=== PATIENT | male | born 1980 | race Two or more races ===

== ENCOUNTER 2018-11-18 01:09 | Emergency (ER) | payer MEDICAID, OTHER ==
[~2018-11-18] VITALS: Ht 188 cm; Wt 114.5 kg
[~2018-11-18 01:09] MED LIST: ACET1TAB12 PO; DOXY-243 PO
[2018-11-18 01:17] VITALS: BP 150/92
[2018-11-18] MEDS ORDERED: PHEN100C4 PO (02:10)
== END 2018-11-18 02:40 | disposition home or self-care (01) ==
LOC: ER 01:10
DX: S06.0X0A Concussion without loss of consciousness, initial encounter (principal); S00.81XA Abrasion of other part of head, initial encounter; I10 Essential (primary) hypertension; F41.9 Anxiety disorder, unspecified; F20.9 Schizophrenia, unspecified; Z88.8 Allergy status to other drugs, medicaments and biological substances; V89.9XXA Person injured in unspecified vehicle accident, initial encounter; Y93.89 Activity, other specified; Y92.89 Other specified places as the place of occurrence of the external cause; Y99.8 Other external cause status
CPT/HCPCS: 99283

== ENCOUNTER 2019-01-02 03:46 | Emergency (ER) | payer MEDICAID ==
[~2019-01-02] VITALS: Ht 185.4 cm; Wt 113.6 kg
[~2019-01-02 03:46] MED LIST changes: +PHEN100C4 PO
--- NOTE | 2019-01-02 04:05 | NUR ---
SZ PADS PLACED ON RAILIS/ SUCTION SET UP WITH O2 ON STAND BY FOR SZ PRECATIONS
[2019-01-02] MEDS ORDERED: normal saline 1000ML IV soln IVB ONE ×2 (04:15)
--- NOTE | 2019-01-02 04:15 | NUR ---
pt to ct with executive director of nursing
--- NOTE | 2019-01-02 04:25 | NUR ---
pt back from ct
[2019-01-02 04:28] LABS: BASOPHILS % (AUTO) 0.6 % (0-1); EOSINOPHILS # (AUTO) 0.1 X10'3 (0-0.9); EOSINOPHILS % (AUTO) 1.4 % (0-6); HEMATOCRIT 44.4 % (42.0-52.0); HEMOGLOBIN 15.3 g/dl (14.0-17.9); LYMPHOCYTES # (AUTO) 1.7 X10'3 (1.1-4.8); LYMPHOCYTES % (AUTO) 22.1 % (21-51); MEAN CORPUSCULAR HEMOGLOBIN 30.9 PG (27.0-31.0); MEAN CORPUSCULAR HGB CONC 34.4 g/dL (33.0-36.5); MEAN CORPUSCULAR VOLUME 89.9 FL (78-98); MEAN PLATELET VOLUME 10.3 FL (7.4-10.4); MONOCYTES # (AUTO) 0.7 X10'3 (0-0.9); MONOCYTES % (AUTO) 9.3 % (2-12); NEUTROPHILS # (AUTO) 5.1 X10'3 (1.8-7.7); NEUTROPHILS % (AUTO) 66.6 % (42-75); PLATELET COUNT 173 X10'3 (140-440); RED BLOOD COUNT 4.94 X10'6 (4.70-6.10); RED CELL DISTRIBUTION WIDTH 13.8 % (11.5-14.5); WHITE BLOOD COUNT 7.7 X10'3 (4.5-11.0)
[2019-01-02 04:40] LABS: ALANINE AMINOTRANSFERASE 145 U/L (12-78); ALBUMIN 3.5 G/DL (3.4-5.0); ALBUMIN/GLOBULIN RATIO 0.8 (1.1-1.5); ALKALINE PHOSPHATASE 129 IU/L (46-116); ANION GAP 7 (8-16); ASPARTATE AMINO TRANSFERASE 69 U/L (10-37); BILIRUBIN,TOTAL 0.5 MG/DL (0.1-1.0); BLOOD UREA NITROGEN 11 MG/DL (7-18); BUN/CREATININE RATIO 11.2 (5.4-32.0); CHLORIDE 106 MMOL/L (99-107); CREATININE 0.98 MG/DL (0.60-1.10); GLUCOSE 112 MG/DL (70-104); POTASSIUM 3.6 MMOL/L (3.5-5.1); SODIUM 141 MMOL/L (135-145); TOTAL CARBON DIOXIDE 27.6 MMOL/L (24-32); TOTAL PROTEIN 7.8 G/DL (6.4-8.2); eGFR 85 ML/MIN
[2019-01-02 04:42] LABS: ETHANOL < 0.010 GM/DL (0.0-0.010)
[2019-01-02 05:13] LABS: URINE AMPHETAMINE SCREEN POSITIVE (Neg); URINE BARBITUATE SCREEN NEGATIVE (Neg); URINE BENZODIAZEPINES SCREEN NEGATIVE (Neg); URINE CANNABINOID SCREEN NEGATIVE (Neg); URINE COCAINE SCREEN NEGATIVE (Neg); URINE METHADONE SCREEN NEGATIVE (Neg); URINE OPIATE SCREEN POSITIVE (Neg); URINE PHENCYCLIDINE SCREEN NEGATIVE (Neg)
--- NOTE | 2019-01-02 05:18 | NUR ---
PT ASLEEP IN BED . AWOKE PT TO ASSESS GAIT ORDERED
--- NOTE | 2019-01-02 05:25 | NUR ---
PT WAS ABLE TO AMBULATE THE FRONT HALLWAY FROM ROOM 2 TO ROOM 6 WITH STEADY GAIT . REPORTED TO DR SLOAN
[2019-01-02 05:43] VITALS: BP 156/85
== END 2019-01-02 05:35 | disposition home or self-care (01) ==
LOC: ER 03:47
DX: R56.9 Unspecified convulsions (principal); T43.625A Adverse effect of amphetamines, initial encounter; R42 Dizziness and giddiness; R05 Cough; R41.0 Disorientation, unspecified; I10 Essential (primary) hypertension; E11.9 Type 2 diabetes mellitus without complications; F41.9 Anxiety disorder, unspecified; F31.9 Bipolar disorder, unspecified; F20.9 Schizophrenia, unspecified; F17.200 Nicotine dependence, unspecified, uncomplicated; F11.90 Opioid use, unspecified, uncomplicated; Z98.890 Other specified postprocedural states; Z88.8 Allergy status to other drugs, medicaments and biological substances; Z79.899 Other long term (current) drug therapy; Y92.89 Other specified places as the place of occurrence of the external cause
CPT/HCPCS: 36415; 70450; 80053; 80305; 80320; 85025; 93005; 96360; 99284; J7030; J7040

== ENCOUNTER 2019-02-03 05:59 | Emergency (ER) | payer MEDICAID, OTHER ==
[~2019-02-03] VITALS: Ht 188 cm; Wt 109.1 kg
[2019-02-03 06:14] VITALS: BP 157/93
== END 2019-02-03 08:52 | disposition left against medical advice (07) ==
LOC: ER 06:00
DX: R56.9 Unspecified convulsions (principal); Z76.0 Encounter for issue of repeat prescription; Z53.21 Procedure and treatment not carried out due to patient leaving prior to being seen by health care provider

== ENCOUNTER 2019-09-07 23:51 | Emergency (ER) | payer MEDICAID, OTHER ==
[~2019-09-07] VITALS: Ht 185.4 cm; Wt 120.4 kg
[2019-09-08 00:35] LABS: BASOPHILS # (AUTO) 0.1 X10'3 (0-0.2); EOSINOPHILS # (AUTO) 0.1 X10'3 (0-0.9); LYMPHOCYTES # (AUTO) 2.3 X10'3 (1.1-4.8); MONOCYTES # (AUTO) 0.6 X10'3 (0-0.9)
[2019-09-08 00:37] LABS: ALANINE AMINOTRANSFERASE 120 U/L (12-78); ALBUMIN 3.5 G/DL (3.4-5.0); ALBUMIN/GLOBULIN RATIO 0.9 (1.1-1.5); ALKALINE PHOSPHATASE 119 IU/L (46-116); ANION GAP 10 (8-16); ASPARTATE AMINO TRANSFERASE 57 U/L (10-37); BILIRUBIN,TOTAL 0.4 MG/DL (0.1-1.0); BLOOD UREA NITROGEN 13 MG/DL (7-18); BUN/CREATININE RATIO 11.9 (5.4-32.0); CALCIUM 8.4 MG/DL (8.5-10.1); CHLORIDE 107 MMOL/L (99-107); CREATININE 1.09 MG/DL (0.60-1.10); GLUCOSE 132 MG/DL (70-104); POTASSIUM 3.5 MMOL/L (3.5-5.1); SODIUM 142 MMOL/L (135-145); TOTAL CARBON DIOXIDE 25.4 MMOL/L (24-32); TOTAL PROTEIN 7.4 G/DL (6.4-8.2); eGFR 75 ML/MIN
[2019-09-08 00:38] LABS: BASOPHILS % (AUTO) 0.9 % (0-1); EOSINOPHILS % (AUTO) 1.7 % (0-6); HEMATOCRIT 44.8 % (42.0-52.0); HEMOGLOBIN 15.6 g/dl (14.0-17.9); LYMPHOCYTES % (AUTO) 26.6 % (21-51); MEAN CORPUSCULAR HEMOGLOBIN 31.5 PG (27.0-31.0); MEAN CORPUSCULAR HGB CONC 34.8 g/dL (33.0-36.5); MEAN CORPUSCULAR VOLUME 90.5 FL (78-98); MEAN PLATELET VOLUME 11.8 FL (7.4-10.4); MONOCYTES % (AUTO) 6.8 % (2-12); NEUTROPHILS # (AUTO) 5.7 X10'3 (1.8-7.7); PLATELET COUNT 143 X10'3 (140-440); RED BLOOD COUNT 4.95 X10'6 (4.70-6.10); RED CELL DISTRIBUTION WIDTH 13.8 % (11.5-14.5); WHITE BLOOD COUNT 8.8 X10'3 (4.5-11.0)
[2019-09-08 01:23] LABS: D-DIMER 0.45 MG/L FEU (0-0.50)
[2019-09-08 02:28] VITALS: BP 152/100
== END 2019-09-08 02:30 | disposition home or self-care (01) ==
LOC: ER 23:51
DX: R06.02 Shortness of breath (principal); R04.2 Hemoptysis; I10 Essential (primary) hypertension; E11.9 Type 2 diabetes mellitus without complications; F41.9 Anxiety disorder, unspecified; F31.9 Bipolar disorder, unspecified; F20.9 Schizophrenia, unspecified; F15.90 Other stimulant use, unspecified, uncomplicated; F11.90 Opioid use, unspecified, uncomplicated; Z86.69 Personal history of other diseases of the nervous system and sense organs; Z87.11 Personal history of peptic ulcer disease; Z98.890 Other specified postprocedural states; Z72.89 Other problems related to lifestyle; Z88.8 Allergy status to other drugs, medicaments and biological substances; Z79.2 Long term (current) use of antibiotics; Z79.899 Other long term (current) drug therapy
CPT/HCPCS: 36415; 71045; 80053; 84484; 85025; 85379; 93005; 99285

== ENCOUNTER 2020-06-13 03:39 | Emergency (ER) | payer MEDICAID ==
[~2020-06-13] VITALS: Ht 185.4 cm; Wt 145.4 kg
[2020-06-13 04:35] VITALS: BP 165/95
== END 2020-06-13 04:36 | disposition home or self-care (01) ==
LOC: ER 03:39
DX: M25.561 Pain in right knee (principal); R53.1 Weakness; I10 Essential (primary) hypertension; E11.9 Type 2 diabetes mellitus without complications; F41.9 Anxiety disorder, unspecified; F31.9 Bipolar disorder, unspecified; F20.9 Schizophrenia, unspecified; F17.210 Nicotine dependence, cigarettes, uncomplicated; F15.90 Other stimulant use, unspecified, uncomplicated; F11.90 Opioid use, unspecified, uncomplicated; Z86.69 Personal history of other diseases of the nervous system and sense organs; Z98.890 Other specified postprocedural states; Z88.8 Allergy status to other drugs, medicaments and biological substances; Z79.899 Other long term (current) drug therapy
CPT/HCPCS: 99281

== ENCOUNTER 2020-08-30 01:45 | Emergency (ER) | payer MEDICAID ==
[~2020-08-30] VITALS: Ht 182.9 cm; Wt 136.0 kg
[2020-08-30 01:54] VITALS: BP 198/122
[2020-08-30] MEDS ORDERED: PENI500T2 PO (03:05)
[2020-08-30] MEDS ORDERED: LIDOcaine Viscous 15ml cup MM ONE (03:10)
[2020-08-30] MEDS ORDERED: penicillin V potassium 500mg tablet PO ONE (03:10)
== END 2020-08-30 03:22 | disposition home or self-care (01) ==
LOC: ER 01:46
DX: K08.89 Other specified disorders of teeth and supporting structures (principal); K05.10 Chronic gingivitis, plaque induced; K02.9 Dental caries, unspecified; R11.10 Vomiting, unspecified; G40.909 Epilepsy, unspecified, not intractable, without status epilepticus; I10 Essential (primary) hypertension; F11.90 Opioid use, unspecified, uncomplicated; F15.90 Other stimulant use, unspecified, uncomplicated; E11.9 Type 2 diabetes mellitus without complications; Z87.11 Personal history of peptic ulcer disease; Z72.89 Other problems related to lifestyle; Z88.8 Allergy status to other drugs, medicaments and biological substances; Z79.2 Long term (current) use of antibiotics; Z79.899 Other long term (current) drug therapy
CPT/HCPCS: 99283

== ENCOUNTER 2021-09-02 00:41 | Emergency (ER) | payer MEDICAID ==
[~2021-09-02] VITALS: Ht 182.9 cm; Wt 125.0 kg
[2021-09-02 00:58] VITALS: BP 164/106
[2021-09-02] MEDS ORDERED: normal saline 1000ml 1,000 ML IV ONE (01:20)
--- NOTE | 2021-09-02 01:30 | NUR ---
PT REFUSED ALL LABS AND IV FOR FLUIDS. STATES HE FEELS BETTER AND WANTS TO LEAVE.
== END 2021-09-02 02:03 | disposition home or self-care (01) ==
LOC: ER 00:42
DX: R55 Syncope and collapse (principal); I10 Essential (primary) hypertension; E11.9 Type 2 diabetes mellitus without complications; F31.9 Bipolar disorder, unspecified; F11.90 Opioid use, unspecified, uncomplicated; F15.20 Other stimulant dependence, uncomplicated; Z88.8 Allergy status to other drugs, medicaments and biological substances
CPT/HCPCS: 93005; 99284

== ENCOUNTER 2021-11-23 13:04 | Emergency (ER) | payer MEDICAID ==
[~2021-11-23] VITALS: Ht 182.9 cm; Wt 113.6 kg
[2021-11-23 13:22] VITALS: BP 168/108
--- NOTE | 2021-11-23 14:52 | NUR ---
PT INFORMED ME THAT HE HE TOOK "[employer] BENYDRYL" BEFORE COMING TO THE ED.
[2021-11-23] MEDS ORDERED: PRED20TA PO (15:58)
== END 2021-11-23 16:32 | disposition home or self-care (01) ==
LOC: ER 13:05
DX: L23.7 Allergic contact dermatitis due to plants, except food (principal); I10 Essential (primary) hypertension; E11.9 Type 2 diabetes mellitus without complications; F31.9 Bipolar disorder, unspecified; F20.9 Schizophrenia, unspecified; F15.10 Other stimulant abuse, uncomplicated; Z88.8 Allergy status to other drugs, medicaments and biological substances
CPT/HCPCS: 99283

== ENCOUNTER 2022-02-02 18:35 | Emergency (ER) | payer MEDICAID ==
[~2022-02-02] VITALS: Ht 177.8 cm; Wt 88.6 kg
[2022-02-02 19:00] VITALS: BP 159/98
--- NOTE | 2022-02-02 21:00 | NUR ---
Patient girlfriend at bedside.
--- NOTE | 2022-02-03 03:44 | NUR ---
Patient awake, requested urinal.
== END 2022-02-03 05:54 | disposition home or self-care (01) ==
LOC: ER 18:35
DX: F19.10 Other psychoactive substance abuse, uncomplicated (principal); I10 Essential (primary) hypertension; E11.9 Type 2 diabetes mellitus without complications; F41.9 Anxiety disorder, unspecified; F31.9 Bipolar disorder, unspecified; F20.9 Schizophrenia, unspecified; F15.90 Other stimulant use, unspecified, uncomplicated; F11.90 Opioid use, unspecified, uncomplicated; Z86.69 Personal history of other diseases of the nervous system and sense organs; Z87.11 Personal history of peptic ulcer disease; Z98.890 Other specified postprocedural states; Z72.89 Other problems related to lifestyle; Z88.8 Allergy status to other drugs, medicaments and biological substances; Z79.2 Long term (current) use of antibiotics; Z79.899 Other long term (current) drug therapy
CPT/HCPCS: 99285

== ENCOUNTER 2022-09-23 07:04 | Emergency (ER) | payer MEDICAID ==
[~2022-09-23] VITALS: Ht 182.9 cm; Wt 122.7 kg
[2022-09-23 07:12] VITALS: BP 161/101; PULSE 76; RESP 18; TEMP 98.1; O2SAT 100
[2022-09-23 07:28] LABS: BASOPHILS % (AUTO) 0.7 % (0-1); EOSINOPHILS # (AUTO) 0.2 X10'3 (0-0.9); EOSINOPHILS % (AUTO) 2.6 % (0-6); HEMATOCRIT 43.5 % (42.0-52.0); HEMOGLOBIN 14.8 g/dl (14.0-17.9); LYMPHOCYTES # (AUTO) 2.6 X10'3 (1.1-4.8); LYMPHOCYTES % (AUTO) 37.7 % (21-51); MEAN CORPUSCULAR HEMOGLOBIN 30.5 PG (27.0-31.0); MEAN CORPUSCULAR HGB CONC 34.1 g/dL (33.0-36.5); MEAN CORPUSCULAR VOLUME 89.4 FL (78-98); MEAN PLATELET VOLUME 10.3 FL (7.4-10.4); MONOCYTES # (AUTO) 0.6 X10'3 (0-0.9); MONOCYTES % (AUTO) 8.6 % (2-12); NEUTROPHILS # (AUTO) 3.5 X10'3 (1.8-7.7); NEUTROPHILS % (AUTO) 50.4 % (42-75); PLATELET COUNT 162 X10'3 (140-440); RED BLOOD COUNT 4.87 X10'6 (4.70-6.10); RED CELL DISTRIBUTION WIDTH 13.4 % (11.5-14.5)
[2022-09-23 07:48] LABS: ALANINE AMINOTRANSFERASE 72 U/L (12-78); ALBUMIN 3.6 G/DL (3.4-5.0); ALBUMIN/GLOBULIN RATIO 0.8 (1.1-1.5); ALKALINE PHOSPHATASE 166 IU/L (46-116); ANION GAP 8 (8-16); ASPARTATE AMINO TRANSFERASE 68 U/L (10-37); BILIRUBIN,TOTAL 0.4 MG/DL (0.1-1.0); BLOOD UREA NITROGEN 11 MG/DL (7-18); BUN/CREATININE RATIO 13.3 (10.0-20.0); CALCIUM 9.2 MG/DL (8.5-10.1); CHLORIDE 103 MMOL/L (99-107); CREATININE 0.83 MG/DL (0.60-1.10); GLUCOSE 100 MG/DL (70-104); POTASSIUM 3.4 MMOL/L (3.5-5.1); SODIUM 141 MMOL/L (135-145); TOTAL CARBON DIOXIDE 29.9 MMOL/L (24-32); TOTAL PROTEIN 7.9 G/DL (6.4-8.2); eGFR > 90 ML/MIN
== END 2022-09-23 11:30 | disposition left against medical advice (07) ==
LOC: ER 07:05
DX: R07.9 Chest pain, unspecified (principal); Z53.21 Procedure and treatment not carried out due to patient leaving prior to being seen by health care provider
CPT/HCPCS: 36415; 80053; 83880; 84484; 85025; 93005; 99281

== ENCOUNTER 2023-03-23 10:29 | Emergency (ER) | payer MEDICAID ==
[~2023-03-23] VITALS: Ht 177.8 cm; Wt 82.6 kg
[2023-03-23 10:30] VITALS: BP 157/97; PULSE 106; RESP 18; TEMP 97.7; O2SAT 97
== END 2023-03-23 11:06 | disposition left against medical advice (07) ==
LOC: ER 10:30
DX: M54.50 Low back pain, unspecified (principal); Z53.21 Procedure and treatment not carried out due to patient leaving prior to being seen by health care provider
CPT/HCPCS: 99281

== ENCOUNTER 2023-08-02 23:08 | Emergency (ER) | payer MEDICAID ==
[~2023-08-02] VITALS: Ht 177.8 cm; Wt 82.0 kg
[2023-08-02 23:18] VITALS: BP 144/71; PULSE 98; RESP 14; TEMP 97.9; O2SAT 97
== END 2023-08-03 00:12 | disposition left against medical advice (07) ==
LOC: ER 23:09
DX: R55 Syncope and collapse (principal); Z53.21 Procedure and treatment not carried out due to patient leaving prior to being seen by health care provider
CPT/HCPCS: 82948; 93005

== ENCOUNTER 2023-09-27 19:48 | Emergency (ER) | payer MEDICAID ==
[~2023-09-27] VITALS: Ht 175.3 cm; Wt 87.4 kg
[2023-09-27 20:09] VITALS: BP 184/107; PULSE 89; RESP 16; TEMP 98.6; O2SAT 99
== END 2023-09-27 21:12 | disposition home or self-care (01) ==
LOC: ER 19:49
DX: Z00.00 Encounter for general adult medical examination without abnormal findings (principal); I10 Essential (primary) hypertension; E11.9 Type 2 diabetes mellitus without complications; F41.9 Anxiety disorder, unspecified; F31.9 Bipolar disorder, unspecified; F15.90 Other stimulant use, unspecified, uncomplicated; Z88.8 Allergy status to other drugs, medicaments and biological substances; Z79.2 Long term (current) use of antibiotics; Z79.1 Long term (current) use of non-steroidal anti-inflammatories (NSAID); Z79.899 Other long term (current) drug therapy
CPT/HCPCS: 99281

== ENCOUNTER 2023-10-08 19:44 | Emergency (ER) | payer MEDICAID ==
[~2023-10-08] VITALS: Ht 180.3 cm; Wt 81.8 kg
[2023-10-08] MEDS: buprenorphine/naloxone 8MG-2MG SUBlingual film SL SCH (21:48)
[2023-10-08] MEDS: normal saline 1000ML IV soln IVB ONE (21:49)
[2023-10-08 21:51] VITALS: BP 150/83; PULSE 118; RESP 16; TEMP 98.6; O2SAT 96
[2023-10-08 22:02] LABS: BASOPHILS # (AUTO) 0.1 X10'3 (0-0.2); BASOPHILS % (AUTO) 0.5 % (0-1); EOSINOPHILS # (AUTO) 0.1 X10'3 (0-0.9); EOSINOPHILS % (AUTO) 0.7 % (0-6); HEMATOCRIT 44.2 % (42.0-52.0); HEMOGLOBIN 14.9 g/dl (14.0-17.9); LYMPHOCYTES # (AUTO) 1.3 X10'3 (1.1-4.8); LYMPHOCYTES % (AUTO) 11.8 % (21-51); MEAN CORPUSCULAR HEMOGLOBIN 30.3 PG (27.0-31.0); MEAN CORPUSCULAR HGB CONC 33.7 g/dL (33.0-36.5); MEAN PLATELET VOLUME 10.9 FL (7.4-10.4); MONOCYTES # (AUTO) 0.7 X10'3 (0-0.9); NEUTROPHILS # (AUTO) 8.9 X10'3 (1.8-7.7); PLATELET COUNT 197 X10'3 (140-440); RED BLOOD COUNT 4.91 X10'6 (4.70-6.10); RED CELL DISTRIBUTION WIDTH 14.5 % (11.5-14.5)
[2023-10-08] MEDS ORDERED: nicotine 21mg patch - 24 hr TD ONE (22:05)
[2023-10-08] MEDS: LORazepam 2 mg/ml vial IV ONE (22:05)
[2023-10-08] MEDS ORDERED: GABA300C PO (22:10)
[2023-10-08] MEDS ORDERED: BUPR1FIL7 SL (22:10)
[2023-10-08 22:12] LABS: ALANINE AMINOTRANSFERASE 62 U/L (12-78); ALBUMIN 3.4 G/DL (3.4-5.0); ALBUMIN/GLOBULIN RATIO 0.7 (1.1-1.5); ALKALINE PHOSPHATASE 103 IU/L (46-116); ANION GAP 12 (8-16); ASPARTATE AMINO TRANSFERASE 53 U/L (10-37); BILIRUBIN,TOTAL 0.3 MG/DL (0.1-1.0); BLOOD UREA NITROGEN 6 MG/DL (7-18); BUN/CREATININE RATIO 6.5 (10.0-20.0); CALCIUM 9.2 MG/DL (8.5-10.1); CHLORIDE 106 MMOL/L (99-107); CREATININE 0.92 MG/DL (0.60-1.10); GLUCOSE 114 MG/DL (70-104); SODIUM 142 MMOL/L (135-145); TOTAL CARBON DIOXIDE 24.5 MMOL/L (24-32); TOTAL PROTEIN 8.2 G/DL (6.4-8.2); eCRCL 110 ML/MIN; eGFR 90 ML/MIN
[2023-10-08 22:20] LABS: PRO BRAIN NATRIURETIC PEPTIDE 1550 PG/ML (0-125)
[2023-10-08 22:24] LABS: POTASSIUM 3.3 MMOL/L (3.5-5.1)
== END 2023-10-09 00:21 | disposition left against medical advice (07) ==
LOC: ER 19:46
DX: F19.10 Other psychoactive substance abuse, uncomplicated (principal); I10 Essential (primary) hypertension; E11.9 Type 2 diabetes mellitus without complications; F41.9 Anxiety disorder, unspecified; F15.90 Other stimulant use, unspecified, uncomplicated; Z88.8 Allergy status to other drugs, medicaments and biological substances; Z79.899 Other long term (current) drug therapy
CPT/HCPCS: 36415; 71045; 80053; 83605; 83880; 84145; 84484; 85025; 87040; 93005; 96361; 96374; 99285; J2060; J7030

== ENCOUNTER 2023-10-09 01:10 | Emergency (ER) | payer MEDICAID ==
[~2023-10-09] VITALS: Ht 182.9 cm; Wt 86.4 kg
[~2023-10-09 01:10] MED LIST changes: +BUPR1FIL7 SL; +GABA300C PO
[2023-10-09 01:16] VITALS: TEMP 98.3
[2023-10-09 05:22] VITALS: BP 168/110; PULSE 75; RESP 18; O2SAT 98
== END 2023-10-09 06:31 | disposition left against medical advice (07) ==
LOC: ER 01:11
DX: M53.3 Sacrococcygeal disorders, not elsewhere classified (principal); F15.90 Other stimulant use, unspecified, uncomplicated; Z88.8 Allergy status to other drugs, medicaments and biological substances; Z79.2 Long term (current) use of antibiotics; Z79.899 Other long term (current) drug therapy
CPT/HCPCS: 72100; 72170; 99284

== ENCOUNTER 2024-05-10 00:37 | Inpatient (IN) | payer MEDICAID ==
[~2024-05-10] VITALS: Ht 177.8 cm; Wt 121.0 kg
[2024-05-10 00:38] VITALS: TEMP 97.8
[2024-05-10 00:57] LABS: BASOPHILS # (AUTO) 0.1 X10'3 (0-0.2); BASOPHILS % (AUTO) 0.9 % (0-1); EOSINOPHILS # (AUTO) 0.1 X10'3 (0-0.9); EOSINOPHILS % (AUTO) 1.5 % (0-6); HEMATOCRIT 48.3 % (42.0-52.0); HEMOGLOBIN 16.4 g/dl (14.0-17.9); LYMPHOCYTES # (AUTO) 2.9 X10'3 (1.1-4.8); LYMPHOCYTES % (AUTO) 37.6 % (21-51); MEAN CORPUSCULAR HEMOGLOBIN 30.9 PG (27.0-31.0); MEAN CORPUSCULAR VOLUME 90.6 FL (78-98); MEAN PLATELET VOLUME 9.4 FL (7.4-10.4); MONOCYTES # (AUTO) 0.6 X10'3 (0-0.9); MONOCYTES % (AUTO) 7.9 % (2-12); NEUTROPHILS # (AUTO) 4.1 X10'3 (1.8-7.7); NEUTROPHILS % (AUTO) 52.1 % (42-75); PLATELET COUNT 164 X10'3 (140-440); RED BLOOD COUNT 5.33 X10'6 (4.70-6.10); RED CELL DISTRIBUTION WIDTH 13.8 % (11.5-14.5); WHITE BLOOD COUNT 7.8 X10'3 (4.5-11.0)
[2024-05-10 01:10] LABS: ALANINE AMINOTRANSFERASE 169 U/L (12-78); ALBUMIN 3.8 G/DL (3.4-5.0); ALBUMIN/GLOBULIN RATIO 0.8 (1.1-1.5); ALKALINE PHOSPHATASE 179 IU/L (46-116); ANION GAP 8 (8-16); ASPARTATE AMINO TRANSFERASE 110 U/L (10-37); BILIRUBIN,TOTAL 0.3 MG/DL (0.1-1.0); BLOOD UREA NITROGEN 18 MG/DL (7-18); BUN/CREATININE RATIO 21.2 (10.0-20.0); CALCIUM 9.3 MG/DL (8.5-10.1); CHLORIDE 104 MMOL/L (99-107); CREATININE 0.85 MG/DL (0.60-1.10); GLUCOSE 114 MG/DL (70-104); POTASSIUM 3.7 MMOL/L (3.5-5.1); SODIUM 141 MMOL/L (135-145); TOTAL CARBON DIOXIDE 28.8 MMOL/L (24-32); TOTAL PROTEIN 8.5 G/DL (6.4-8.2); eCRCL 115 ML/MIN; eGFR > 90 ML/MIN
[2024-05-10] MEDS: metoprolol tartrate 1mg/ml inj IV SCH (01:15)
[2024-05-10] MEDS: metoprolol tartrate 50mg tablet PO ONE (01:26)
[2024-05-10] MEDS ORDERED: LISI40TA13 PO (02:02)
[2024-05-10] MEDS ORDERED: FAMO20TA8 PO (02:03)
[2024-05-10] MEDS ORDERED: AMLO2.5T2 PO (02:05)
[2024-05-10] MEDS ORDERED: MELO-102 PO (02:06)
[2024-05-10] MEDS ORDERED: ERGO500093 PO (02:09)
[2024-05-10] MEDS ORDERED: BUPR128S SQ (02:09)
[2024-05-10] MEDS ORDERED: ondansetron/PF 4mg/2ml inj IV PRN (02:35)
[2024-05-10] MEDS ORDERED: potassium Cl 20 mEq SR tablet PO PRN ×2 (02:35)
[2024-05-10] MEDS ORDERED: acetaminophen 325mg tablet PO PRN (02:35)
[2024-05-10] MEDS ORDERED: magnesium sulf-water 4G/100mL 100 ML IV PRN (02:35)
[2024-05-10] MEDS ORDERED: potassium Cl 40MEQ/1/2NS 520ml 520 ML IV PRN (02:35)
[2024-05-10] MEDS ORDERED: magnesium sulf-water 2g/50mL 50 ML IV PRN (02:35)
[2024-05-10] MEDS ORDERED: magnesium Cl slow-release 64mg tablet PO PRN (02:35)
[2024-05-10] MEDS: normal saline 1000ml 1,000 ML IV SCH (02:51)
[2024-05-10] MEDS: losartan 50mg tablet PO SCH (05:36)
[2024-05-10] MEDS: amLODIPine 5mg tablet PO ONE (05:36)
[2024-05-10] MEDS: K and/or MAG REPLACEMENT MC SCH (08:00)
[2024-05-10] MEDS: phenytoin sod ER 100mg capsule PO SCH (09:37)
[2024-05-10] MEDS: gabapentin 300mg capsule PO SCH (09:37)
[2024-05-10 09:45] VITALS: BP 142/86; PULSE 55; RESP 14; O2SAT 98
[2024-05-10] MEDS ORDERED: NOR5T PO (09:55)
[2024-05-10] MEDS ORDERED: LOSA50TA64 PO (09:55)
[2024-05-10] MEDS ORDERED: NICO-731 TD (10:03)
== END 2024-05-10 11:00 | disposition home or self-care (01) | DRG 199 ==
LOC: ER 00:37 → ED HOLD 02:36
PROVIDERS: ADMIT Surgery Surgical Critical Care; ATTEND Family Medicine
DX: I16.1 Hypertensive emergency (principal); E11.9 Type 2 diabetes mellitus without complications; F41.9 Anxiety disorder, unspecified; G40.909 Epilepsy, unspecified, not intractable, without status epilepticus; F17.210 Nicotine dependence, cigarettes, uncomplicated; F20.9 Schizophrenia, unspecified; F31.9 Bipolar disorder, unspecified; I10 Essential (primary) hypertension; Z87.11 Personal history of peptic ulcer disease; Z88.8 Allergy status to other drugs, medicaments and biological substances
CPT/HCPCS: 36415; 70450; 71045; 80053; 84484; 85025; 93005; 99285; G0378; J3490; J7030